=== PATIENT | male | born 1990 | race Caucasian/White ===

== ENCOUNTER 2019-08-06 11:47 | Outpatient (CLI) | payer SELFPAY ==
--- NOTE | 2019-08-06 12:02 | DI.RAD_ITS ---
EXAM: XR ANKLE LT COMPLETE INDICATION: Pain. COMPARISON: No exams were available for comparison TECHNIQUE: 2D digital imaging was performed. FINDINGS: There is an osseous fragment seen at the tip of the medial malleolus suspicious for nondisplaced frac ture. No other fracture or dislocation is identified. Soft tissues are unremarkable. IMPRESSION: Osseous density at the tip of the medial malleolus. The findings are suspicious for an avulsed fract ure fragment. The age is indeterminate. Please correlate with patient's clinical history.
== END 2019-08-06 12:07 ==
PROVIDERS: Visit Provider Student in an Organized Health Care Education/Training Program
DX: M25.572 Pain in left ankle and joints of left foot (principal); S99.912A Unspecified injury of left ankle, initial encounter; M89.8X7 Other specified disorders of bone, ankle and foot
CPT/HCPCS: 73610

== ENCOUNTER 2019-09-04 10:27 | Outpatient (CLI) | payer SELFPAY ==
--- NOTE | 2019-09-04 09:47 | DI.RAD_ITS ---
EXAM: XR ANKLE LT COMPLETE INDICATION: pain. COMPARISON: XR ANKLE LT COMPLETE from 08/06/2019 TECHNIQUE: 2D digital imaging was performed. FINDINGS: There has been no change in the fracture at the tip of the medial malleolus. No new abnormalities are seen.
== END 2019-09-04 10:47 ==
PROVIDERS: Visit Provider Student in an Organized Health Care Education/Training Program
DX: S82.55XD Nondisplaced fracture of medial malleolus of left tibia, subsequent encounter for closed fracture with routine healing (principal)
CPT/HCPCS: 73610

== ENCOUNTER 2019-10-09 09:15 | Outpatient (CLI) | payer SELFPAY ==
--- NOTE | 2019-10-09 09:00 | DI.RAD_ITS ---
EXAM: XR ANKLE LT COMPLETE CLINICAL HISTORY: Follow Up TECHNIQUE: COMPARISON: XR ANKLE LT COMPLETE from 09/04/2019 FINDINGS: Three views were obtained. Previous described fracture of the tip of the medial malleolus again note d with no gross interval change in alignment in comparison with examination September 04. The ankle mortise appears well maintained. IMPRESSION:
== END 2019-10-09 09:35 ==
PROVIDERS: Visit Provider Student in an Organized Health Care Education/Training Program
DX: S82.55XD Nondisplaced fracture of medial malleolus of left tibia, subsequent encounter for closed fracture with routine healing (principal)
CPT/HCPCS: 73610